=== PATIENT | male | born 1995 | race Caucasian/White ===

== ENCOUNTER 2017-02-05 12:12 | Emergency (ER) | payer OTHER, MEDICAID ==
[2017-02-05] MEDS ORDERED: PROPOFOL/EMULSION 1,000 MG/100 ML BOTTLE IV ONE (12:32)
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
[2017-02-05 12:49] LABS: % IMMATURE GRANULYOCYTES 0.7 % (0.0-1.1); ABSOLUTE IMMATURE GRANULOCYTES 0.06 10^3/uL (0.00-0.10); ADD DIFF? NO; ADD MORPH? NO; ADD SCAN? NO; ATYPICAL LYMPHOCYTE FLAG 10 (0-99); FRAGMENT RBC FLAG 0 (0-99); HEMATOCRIT 43.4 % (40.0-51.0); HEMOGLOBIN 14.8 g/dL (13.7-17.5); LEFT SHIFT FLG 0 (0-99); LIPEMIA HEMOLYSIS FLAG 90 (0-99); MEAN CELL HEMOGLOBIN 31.5 pg (27.9-34.1); MEAN CELL HEMOGLOBIN CONCENTR. 34.1 g/dL (32.4-36.7); MEAN CELL VOLUME 92.3 fL (81.5-99.8); MEAN PLATELET VOLUME 10.1 fL (8.7-11.7); PLATELET CLUMPS FLAG 0 (0-99); PLATELET COUNT 220 10^3/uL (150-400); RED CELL DISTRIBUTION WIDTH 11.9 % (11.5-15.2)
[2017-02-05 12:52] LABS: INR 1.17 (0.83-1.16); PROTIME(PATIENT) 14.9 SEC (12.0-15.0)
[2017-02-05 12:53] LABS: APTT 25.1 SEC (23.0-38.0)
[2017-02-05] MEDS ORDERED: levETIRAcetam 1,000 MG in NS 100 ML IV ONE (13:02)
[2017-02-05 13:03] LABS: ANION GAP 22 mEq/L (8-16); CALCIUM 8.8 mg/dL (8.5-10.4); CARBON DIOXIDE 16 mEq/l (22-31); CHLORIDE 106 mEq/L (97-110); CREATININE 1.1 mg/dL (0.7-1.3); ETHANOL SERUM < 10 mg/dL (0-10); GLOMERULAR FILTRATION RATE > 60; GLUCOSE 116 mg/dL (70-100); POTASSIUM 3.7 mEq/L (3.5-5.2); SODIUM 144 mEq/L (134-144)
[2017-02-05 13:24] LABS: CALCULATED OXYGEN SATURATION 100 % (92-95); O2 CONCENTRATIION 60 % (0-100)
--- NOTE | 2017-02-05 13:45 | CPEKG ---
Heart Rate: 87 RR Interval: 690 P-R Interval: 156 QRSD Interval: 88 QT Interval: 368 QTC Interval: 443 P [place]: 75 QRS [place]: 82 T Wave [place]: 66 EKG Severity - ABNORMAL ECG - EKG Impression: SINUS RHYTHM EKG Impression: ST ELEVATION SUGGESTS PERICARDITIS Electronically Signed By: Keyon Carvajal 05-Feb-2017 14:28:22
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
[2017-02-05 13:47] LABS: BASE EXCESS -1.5 mEq/L (-2.5-2.5); BICARBONATE 22 mEq/L (22-26); MEASURED OXYGEN SATURATION 100 % (92-95); PCO2 37 mmHg (34-38); PO2 214 mmHg (65-75); TCO2 24 mEq/L (23-27)
[2017-02-05 13:55] LABS: O2 CONCENTRATIION 60 % (0-100); P/F RATIO 357 RATIO; SIMV YES
[2017-02-05 13:56] LABS: END TIDAL CO2 32; PATIENT RATE 4; PRESSURE SUPPORT 7
[2017-02-05] MEDS ORDERED: ETOMIDATE 40 MG/20 ML INJ ONE (16:05)
[2017-02-05] MEDS ORDERED: fentaNYL 100 MCG/2 ML INJ ONE (16:06)
[2017-02-05] MEDS ORDERED: MIDAZOLAM 2 MG/2 ML VIAL ONE (16:07)
[2017-02-05] MEDS ORDERED: SUCCINYLCHOLINE CHLORIDE*ANESTHESIA ONLY*200 MG/10 ML SYR IVP ONE (16:08)
[2017-02-05] MEDS ORDERED: ETOMIDATE 40 MG/20 ML INJ IVP ONE (16:36)
[2017-02-05] MEDS ORDERED: SUCCINYLCHOLINE CHLORIDE 200 MG/10 ML VIAL IVP ONE (16:37)
[2017-02-05] MEDS ORDERED: ONDANSETRON 4 MG/2 ML VIAL IVP ONE (16:38)
[2017-02-05] MEDS ORDERED: MIDAZOLAM 2 MG/2 ML VIAL IVP ONE ×2 (16:38→16:39)
[2017-02-05] MEDS ORDERED: fentaNYL 100 MCG/2 ML INJ IVP ONE ×3 (16:39→16:40)
[2017-02-05] MEDS ORDERED: IBUPROFEN 200 MG TAB PO ONE ×2 (16:49→16:54)
[2017-02-05 17:21] VITALS: BP 136/78; PULSE 82; RESP 18; TEMP 98.4; O2SAT 96
--- NOTE | 2017-02-07 14:49 | ASMTCMCOM ---
CM Note CM Note Notes: Follow up from ER visit on 02/05/17: I called patient to confirm that he has contact information for referral to Dr. Ruiz (Neurology) from his visit s/p fall and seizure on 02/05/17. Patient tells me that he has not yet called for a follow up appointment but he has the phone number for Dr. Ruiz's office, which he confirms as . Patient tells me he has filled his prescription for his Kepra and I reminded him that he must call and make an appointment with the neurologist AKBAR so as to get in for exam and follow up-including prescription refills Patient verbalizes understanding ans promises to call for an appointment on Thursday Date Signed: 02/07/2017 02:48 PM Electronically Signed By:Lashay Pacheco RN
== END 2017-02-05 17:21 | disposition home or self-care (01) ==
PROC: 0BH17EZ Insertion of Endotracheal Airway into Trachea, Via Natural or Artificial Opening (ICD-10-PCS; principal; 2017-02-05)
DX: T14.8XXA Other injury of unspecified body region, initial encounter (principal); R56.9 Unspecified convulsions; W11.XXXA Fall on and from ladder, initial encounter; Y92.69 Other specified industrial and construction area as the place of occurrence of the external cause; Y99.0 Civilian activity done for income or pay; Y93.89 Activity, other specified
CPT/HCPCS: 80305; 82947-QW; 96374; G0480; J0330; J1953; J2250; J2704; J3010